=== PATIENT | female | born 1970 | race African-American/Black ===

== ENCOUNTER 2017-05-24 13:41 | Emergency (ER) | payer OTHER ==
[~2017-05-24 13:41] MED LIST: LORTA5 PO
[2017-05-24 13:48] VITALS: BP 189/104; PULSE 72; RESP 18; TEMP 98.7; O2SAT 100
[2017-05-24 13:55] VITALS: O2SAT 100
[2017-05-24] MEDS ORDERED: OMEP20TA93 PO (13:56)
[2017-05-24] MEDS ORDERED: HYDR-3516 PO (13:56)
[2017-05-24] MEDS ORDERED: SODIUM CHLORIDE 0.9% FLUSH 10 ML FLUSH IVF PRN (14:00)
--- NOTE | 2017-05-24 14:06 | RADRPT ---
EXAM DATE/TIME: 05/24/2017 13:52 [facility] COMPARISON: No previous studies available for comparison. INDICATIONS : Right side chest pain & tingling down arm to hand. MEDICAL HISTORY : Gastroesophageal reflux disease. Hypertension Heart murmur. SURGICAL HISTORY : Tubal ligation. section. Hysterectomy. Left ear keloids removed. ENCOUNTER: Initial ACUITY: 2 days PAIN SCORE: 6/10 LOCATION: Right chest FINDINGS: A single view of the chest demonstrates the lungs to be symmetrically aerated without evidence of mas s, infiltrate or effusion. The cardiomediastinal contours are unremarkable. Osseous structures are intact. CONCLUSION: 1. No acute cardiopulmonary disease. Albert Lombardi MD on May 24, 2017 at 14:05 Board Certified Radiologist. This report was verified electronically.
[2017-05-24 14:09] LABS: AUTOMATED NEUTROPHIL # 3.8 TH/MM3 (1.8-7.7); BASOPHIL # 0.1 TH/MM3 (0-0.2); BASOPHIL % 1.7 % (0.0-2.0); CHLORIDE 103 MEQ/L (98-107); EOSINOPHIL # 0.3 TH/MM3 (0-0.4); EOSINOPHIL % 3.5 % (0.0-4.0); HEMATOCRIT 35.1 % (35.0-46.0); HEMOGLOBIN 11.6 GM/DL (11.6-15.3); LYMPH % 33.8 % (9.0-44.0); LYMPHOCYTE # 2.5 TH/MM3 (1.0-4.8); MEAN CELL VOLUME 86.5 FL (80.0-100.0); MEAN CORPUSCULAR HEMOGLOBIN 28.6 PG (27.0-34.0); MEAN CORPUSCULAR HGB CONC 33.1 % (32.0-36.0); MEAN PLATELET VOLUME 8.2 FL (7.0-11.0); MONOCYTE # 0.6 TH/MM3 (0-0.9); PLATELET COUNT 271 TH/MM3 (150-450); RED BLOOD COUNT 4.06 MIL/MM3 (4.00-5.30); RED CELL DISTRIBUTION WIDTH 12.8 % (11.6-17.2); SODIUM (NA) 138 MEQ/L (136-145); WHITE BLOOD COUNT 7.3 TH/MM3 (4.0-11.0)
[2017-05-24 14:11] LABS: CALCIUM 8.6 MG/DL (8.5-10.1)
[2017-05-24 14:12] LABS: BICARBONATE 29.7 MEQ/L (21.0-32.0); BLOOD UREA NITROGEN 9 MG/DL (7-18); GLUCOSE,RANDOM 92 MG/DL (74-106)
[2017-05-24 14:15] LABS: GLOMERULAR FILTRATION RATE 92 ML/MIN (>89)
[2017-05-24 14:20] LABS: TROPONIN I LESS THAN 0.02 NG/ML (0.02-0.05)
[2017-05-24 14:21] LABS: PROTHROMBIN TIME - PATIENT 10.2 SEC (9.8-11.6)
--- NOTE | 2017-05-24 14:30 | RADRPT ---
EXAM DATE/TIME: 05/24/2017 13:59 [facility] COMPARISON: CT BRAIN W/O CONTRAST, April 03, 2012, 13:34. CT ABDOMEN & PELVIS W CONTRAST, June 21, 2015, 10: 10. INDICATIONS : Right arm tingling and numbness. Right chest pain. Evaluate for cerebrovascular accident. RADIATION DOSE: 63.98 CTDIvol (mGy) MEDICAL HISTORY : Hypertension. Gastroesophageal reflux disease. Heart murmur. SURGICAL HISTORY : Tubal ligation. section.Hysterectomy.Left ear keloids removed. ENCOUNTER: Initial ACUITY: 1 day PAIN SCALE: 4/10 LOCATION: cranial TECHNIQUE: Multiple contiguous axial images were obtained of the head. Using automated exposure control and adj ustment of the mA and/or kV according to patient size, radiation dose was kept as low as reasonably a chievable to obtain optimal diagnostic quality images. DICOM format image data is available electro nically for review and comparison. FINDINGS: CEREBRUM: The ventricles are normal for age. No evidence of midline shift, mass lesion, hemorrhage or acute in farction. No extra-axial fluid collections are seen. POSTERIOR FOSSA: The cerebellum and brainstem are intact. The 4th ventricle is midline. The cerebellopontine angle i s unremarkable. EXTRACRANIAL: The visualized portion of the orbits is intact. SKULL: The calvaria is intact. No evidence of skull fracture. CONCLUSION: 1. No acute intracranial abnormality identified. Garfield Gomez MD on May 24, 2017 at 14:27 Board Certified Radiologist. This report was verified electronically.
[2017-05-24 14:32] LABS: BILIRUBIN, URINE NEG (NEG); BLOOD, URINE NEG (NEG); GLUCOSE,URINE NEG (NEG); KETONE, URINE NEG (NEG); NITRITE,URINE POS (NEG); URINE LEUKOCYTE ESTERASE TRACE (NEG)
[2017-05-24] MEDS ORDERED: SULFAMETHOXAZOLE-TRIMETHOPRIM DS 800-160 MG TAB PO ONE (14:45)
[2017-05-24 15:00] LABS: URINE COLOR YELLOW (YELLW/STRAW)
[2017-05-24 15:01] LABS: BACTERIA, URINE MANY /hpf; WHITE BLOOD CELL CLUMPS FEW
[2017-05-24 15:02] LABS: SQUAMOUS EPITHELIAL CELL URINE 0-5 /hpf (0-5); WBC, URINE 15-19 /hpf (0-5); WHITE BLOOD CELL CAST, URINE 0-2 /lpf
[2017-05-24] MEDS ORDERED: BACT800T5 PO (15:08)
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
[2017-05-24 15:35] VITALS: BP 175/97; PULSE 76; RESP 18; O2SAT 99
--- NOTE | 2017-05-25 14:37 | EKG ---
Date Performed: 05/24/2017 Time Performed: 13:49:22 PTAGE: 47 years EKG: Sinus rhythm NONSPECIFIC T-WAVE ABNORMALITY BORDERLINE ECG Since PREVIOUS TRACING , no significant change noted PREVIOUS TRACIN03/13/2011 08.12.10 DOCTOR: Hardeep Parnell Interpretating Date/Time 05/25/2017 14:37:35
== END 2017-05-24 15:59 | disposition home or self-care (01) ==
LOC: PHED 13:41
DX: N30.00 Acute cystitis without hematuria (principal); R20.2 Paresthesia of skin; F19.10 Other psychoactive substance abuse, uncomplicated; R94.31 Abnormal electrocardiogram [ECG] [EKG]; R07.9 Chest pain, unspecified; K21.9 Gastro-esophageal reflux disease without esophagitis; Z79.899 Other long term (current) drug therapy
CPT/HCPCS: 70450; 71045; 80048; 80307; 81001; 82550; 84484; 85025; 85610; 85730; 87077; 87086; 87186; 93005; 99285

== ENCOUNTER 2017-06-10 09:54 | Emergency (ER) | payer OTHER ==
[~2017-06-10] VITALS: Ht 157.5 cm; Wt 59.5 kg
[~2017-06-10 09:54] MED LIST changes: +BACT800T5 PO; +HYDR-3516 PO; -LORTA5 PO; +OMEP20TA93 PO
[2017-06-10 10:00] VITALS: BP 140/76; PULSE 86; RESP 16; TEMP 97.8; O2SAT 100
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
--- NOTE | 2017-06-10 11:24 | RADRPT ---
EXAM DATE/TIME: 06/10/2017 10:58 [facility] COMPARISON: No previous studies available for comparison. INDICATIONS : Right hand pain post fall. MEDICAL HISTORY : None. SURGICAL HISTORY : None. ENCOUNTER: Initial ACUITY: 1 day PAIN SCORE: 8/10 LOCATION: Right medial hand FINDINGS: Three view examination of the right hand demonstrates no soft tissue swelling, dislocation, or fractu re. The carpal bones appear intact. The interphalangeal and metacarpophalangeal joints are intact. Bony mineralization is normal. CONCLUSION: No acute disease. Adan Green Jr., MD on June 10, 2017 at 11:16 Board Certified Radiologist. This report was verified electronically.
== END 2017-06-10 11:53 | disposition home or self-care (01) ==
LOC: PHEFT 09:54
DX: S60.221A Contusion of right hand, initial encounter (principal); R01.1 Cardiac murmur, unspecified; K21.9 Gastro-esophageal reflux disease without esophagitis; Z79.899 Other long term (current) drug therapy; Z72.0 Tobacco use; W01.190A Fall on same level from slipping, tripping and stumbling with subsequent striking against furniture, initial encounter
CPT/HCPCS: 73130; 99283